=== PATIENT | female | born 2000 | race Caucasian/White ===

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

== ENCOUNTER 2022-04-13 11:05 | Inpatient (IN) | payer OTHER ==
[2022-04-13 12:50] LABS: BASO % 0.2 % (0-2.0); EOS % 0.6 % (0-4.5); HEMATOCRIT 34.7 % (32.4-45.2); HEMOGLOBIN 10.8 GM/dL (10.7-15.3); LYMPH % 16.4 % (8-40); MCH 23.1 pg (25.7-33.7); MEAN CELL VOLUME 74.5 fl (80-96); MEAN PLT VOLUME 8.1 fl (7.5-11.1); MONO % 4.1 % (3.8-10.2); NEUT % 78.7 % (42.8-82.8); PLATELET COUNT 361 10^3/uL (134-434); RBC 4.66 M/mm3 (3.60-5.2); RDW 16.4 % (11.6-15.6); WHITE BLOOD COUNT 8.8 K/mm3 (4.0-10.0)
[2022-04-13 13:11] LABS: ALBUMIN 2.6 g/dl (3.4-5.0); CALCIUM 9.5 mg/dL (8.5-10.1)
[2022-04-13 13:12] LABS: BLOOD UREA NITROGEN 8.4 mg/dL (7-18)
[2022-04-13 13:13] LABS: CREATININE 0.6 mg/dL (0.55-1.3)
[2022-04-13 13:15] LABS: CREATININE 0.6 mg/dL (0.55-1.3); TOT PROT 6.9 g/dl (6.4-8.2)
[2022-04-13 13:17] LABS: BILIRUBIN,TOTAL 0.2 mg/dL (0.2-1)
[2022-04-13 14:00] LABS: CREATININE 0.6 mg/dL (0.55-1.3)
[2022-04-13] MEDS ORDERED: PROMETHAZINE HCL 25 MG/1 ML VIAL IVPUSH ONE (15:44)
[2022-04-13] MEDS ORDERED: BUTORPHANOL TARTRATE 2 MG/ML VIAL IVPB ONE (15:44)
[2022-04-13] MEDS ORDERED: DINOPROSTONE 10 MG VAGINAL SUPPOSITORY VG ONE (15:51)
[2022-04-13 16:52] LABS: INR 1.03 (0.83-1.09); PROTHROMBIN TIME (PATIENT) 11.9 SEC (9.7-13.0)
[2022-04-13 16:55] LABS: ACTIVATED PTT 32.5 SECONDS (25.2-36.5)
[2022-04-13 17:19] VITALS: BMI 42.7
[2022-04-13 19:22] LABS: HIV INTERPRETATION NEGATIVE (NEGATIVE)
[2022-04-14] MEDS ORDERED: SODIUM PHOSPHATE/NA BIPHOS 133 ML ENEMA RC ONE (04:00)
[2022-04-14] MEDS ORDERED: AMPICILLIN - 2 GM in SODIUM CHLORIDE 100 ML IVPB ONE (06:00)
[2022-04-14] MEDS ORDERED: AMPICILLIN SODIUM 2 GM VIAL ONE (06:08)
[2022-04-14] MEDS: DEXTROSE 5%-LACTATED RINGERS 1,000 ML IV SCH ×2 (06:45→16:00)
[2022-04-14] MEDS ORDERED: OXYTOCIN 30 UNITS in 0.9% NS 30 UNIT/500 ML INFUS.BAG IVPB SCH (08:00)
[2022-04-14] MEDS ORDERED: AMPICILLIN SODIUM 1 GM VIAL ONE ×3 (08:49→18:10)
[2022-04-14] MEDS ORDERED: OXYTOCIN 30 UNITS in 0.9% NS 30 UNIT/500 ML INFUS.BAG IVPB ONE (08:49)
[2022-04-14] MEDS: AMPICILLIN - 1 GM in SODIUM CHLORIDE 100 ML IVPB SCH ×3 (10:45→18:15)
[2022-04-14] MEDS ORDERED: BUTORPHANOL TARTRATE 2 MG/ML VIAL ONE (12:57)
[2022-04-14] MEDS ORDERED: PROMETHAZINE HCL 25 MG/1 ML VIAL ONE ×2 (12:57→16:40)
[2022-04-14] MEDS ORDERED: ACETAMINOPHEN 325 MG TABLET (FP) PO ONE (15:24)
[2022-04-14] MEDS ORDERED: PROMETHAZINE HCL 25 MG/1 ML VIAL IVPUSH ONE (16:39)
[2022-04-14] MEDS ORDERED: BUTORPHANOL TARTRATE 1 MG/ML VIAL IVPUSH ONE (16:39)
[2022-04-14] MEDS ORDERED: BUTORPHANOL TARTRATE 1 MG/ML VIAL ONE (16:40)
[2022-04-14] MEDS ORDERED: LIDOCAINE HCL 1% PRESERVATIVE FREE - 30ML VIAL ONE (17:04)
[2022-04-14] MEDS ORDERED: OXYTOCIN 20 UNITS in 0.9% NS 20 UNIT/1,000 ML INFUS.BAG IV ONE (17:04)
[2022-04-14] MEDS ORDERED: BISACODYL 10 MG SUPP.RECT RC PRN (17:31)
[2022-04-14] MEDS ORDERED: ACETAMINOPHEN 325 MG TABLET (FP) PO PRN (17:31)
[2022-04-14] MEDS ORDERED: BENZOCAINE 20% 57 GM BOTTLE TP PRN (17:31)
[2022-04-14] MEDS ORDERED: BENZOCAINE 28 GM HEMORRHOIDAL OINTMENT TP PRN (17:31)
[2022-04-14] MEDS ORDERED: WITCH HAZEL 50% (TUCKS) 40 PAD/JAR PAD TP PRN (17:31)
[2022-04-14] MEDS ORDERED: oxyCODONE HCL 5 MG TABLET PO PRN (17:31)
[2022-04-14] MEDS ORDERED: IBUPROFEN 600 MG TABLET (FP) PO PRN (17:31)
[2022-04-14] MEDS ORDERED: METHYLERGONOVINE MALEATE 0.2 MG/1 ML AMP IM PRN (17:31)
[2022-04-14] MEDS ORDERED: OXYTOCIN 20 UNITS in 0.9% NS 20 UNIT/1,000 ML INFUS.BAG IV SCH (17:45)
[2022-04-14 18:14] LABS: CORD BASE EXCESS -4.3 mmol/L (0-2); CORD HCO3 21.9 mmHg (20-29); CORD PCO2 44.1 mmHg (30-78); CORD pH 7.314 (7.14-7.44)
[2022-04-14 18:21] LABS: CORD BASE EXCESS -3.6 mmol/L (0-2); CORD HCO3 21.6 mmHg (20-29); CORD PCO2 39.5 mmHg (30-78); CORD pH 7.355 (7.14-7.44)
[2022-04-14 19:52] VITALS: RESP 18
[2022-04-15 06:08] LABS: EPI CELLS 13 /uL (0-25.1); HYALINE CASTS 0 /uL (0-3.1); PH,URINE 6.5 (5.0-8.0); URINE APPEARANCE CLEAR; URINE BACTERIA 5 /uL (0-1359); URINE BILIRUBIN NEGATIVE (NEGATIVE); URINE COLOR YELLOW; URINE GLUCOSE (UA) NEGATIVE (NEGATIVE); URINE KETONE TRACE (NEGATIVE); URINE LEUK ESTERASE TRACE (NEGATIVE); URINE NITRITE NEGATIVE (NEGATIVE); URINE PROTEIN 2+ (NEGATIVE); URINE RBC 1246 /uL (0-23.9); URINE WBC 13 /uL (0-25.8)
[2022-04-15 09:19] LABS: BASO % 0.3 % (0-2.0); EOS % 0.5 % (0-4.5); HEMATOCRIT 27.6 % (32.4-45.2); HEMOGLOBIN 8.8 GM/dL (10.7-15.3); LYMPH % 12.4 % (8-40); MCH 23.9 pg (25.7-33.7); MCHC 31.9 g/dl (32.0-36.0); MEAN CELL VOLUME 74.9 fl (80-96); MEAN PLT VOLUME 7.9 fl (7.5-11.1); MONO % 4.5 % (3.8-10.2); NEUT % 82.3 % (42.8-82.8); PLATELET COUNT 272 10^3/uL (134-434); RBC 3.69 M/mm3 (3.60-5.2); RDW 16.1 % (11.6-15.6); WHITE BLOOD COUNT 12.4 K/mm3 (4.0-10.0)
[2022-04-15] MEDS: FERROUS SO4 325 MG TABLET (FP) PO SCH ×2 (09:49→18:20)
[2022-04-15] MEDS: PRENATAL VITAMINS W/ FOLIC ACID TABLET (FP) PO SCH (09:49)
[2022-04-15] MEDS ORDERED: FLU VACC QS2022-23(6MOS UP)/PF 60 MCG/0.5 ML SYRINGE IM ONE (10:00)
[2022-04-15] MEDS ORDERED: DIPHTH,PERTUSS(ACELL),TET 0.5 ML DISP.SYRIN IM ONE (10:00)
[2022-04-15 11:36] LABS: EPI CELLS >36 /uL (0-25.1); HYALINE CASTS 1 /uL (0-3.1); PH,URINE 6.5 (5.0-8.0); URINE APPEARANCE CLEAR; URINE BACTERIA 3 /uL (0-1359); URINE BILIRUBIN NEGATIVE (NEGATIVE); URINE COLOR YELLOW; URINE GLUCOSE (UA) NEGATIVE (NEGATIVE); URINE KETONE NEGATIVE (NEGATIVE); URINE LEUK ESTERASE 1+ (NEGATIVE); URINE NITRITE NEGATIVE (NEGATIVE); URINE PROTEIN TRACE (NEGATIVE); URINE RBC 1955 /uL (0-23.9); URINE WBC 79 /uL (0-25.8)
[2022-04-15] MEDS ORDERED: SENNOSIDES/DOCUSATE COMBO (SENNA PLUS) TABLET (UD) PO PRN (22:00)
[2022-04-15 22:06] VITALS: TEMP 98.5
[2022-04-16] MEDS: PRENATAL VITAMINS W/ FOLIC ACID TABLET (FP) PO SCH (09:13)
[2022-04-16] MEDS: FERROUS SO4 325 MG TABLET (FP) PO SCH (09:13)
[2022-04-16 11:13] VITALS: BP 146/86; PULSE 88
== END 2022-04-16 12:13 | disposition home or self-care (01) | DRG 560 ==
LOC: JDEL 11:05 → JLDR 15:00 → J3W 04-14 20:01
PROVIDERS: ADMIT Obstetrics & Gynecology; ATTEND Obstetrics & Gynecology
PROC: 10E0XZZ Delivery of Products of Conception, External Approach (ICD-10-PCS; principal; 2022-04-13)
PROC: 3E0P7VZ Introduction of Hormone into Female Reproductive, Via Natural or Artificial Opening (ICD-10-PCS; 2022-04-13)
DX: O14.04 Mild to moderate pre-eclampsia, complicating childbirth (principal); O12.13 Gestational proteinuria, third trimester; O99.214 Obesity complicating childbirth; E66.01 Morbid (severe) obesity due to excess calories; O99.824 Streptococcus B carrier state complicating childbirth; Z3A.39 39 weeks gestation of pregnancy; Z37.0 Single live birth; Z86.16 Personal history of COVID-19
CPT/HCPCS: 36415; 36600; 59025; 59409; 71046-TC-FY; 80053; 81003; 82565; 82570; 82575; 82803; 84156; 85025; 85610; 85730; 86780; 86850; 86900; 86901; 87086; 87389; 90715; C9803-CS; G0008; Q2036; U0003; U0005

== ENCOUNTER 2023-10-29 07:15 | Inpatient (IN) | payer OTHER ==
[2023-10-29] MEDS: SODIUM CHLORIDE 0.9% 500 ML INFUS.BAG IV ONE (09:10)
[2023-10-29 09:26] LABS: BASO % 0.2 % (0-2.0); EOS % 0.5 % (0-4.5); HEMATOCRIT 37.1 % (32.4-45.2); HEMOGLOBIN 12.4 GM/dL (10.7-15.3); LYMPH % 12.6 % (8-40); MCH 26.5 pg (25.7-33.7); MCHC 33.4 g/dl (32.0-36.0); MEAN CELL VOLUME 79.3 fl (80-96); MEAN PLT VOLUME 7.5 fl (7.5-11.1); MONO % 4.4 % (3.8-10.2); NEUT % 82.3 % (42.8-82.8); PLATELET COUNT 320 10^3/uL (134-434); RBC 4.67 M/mm3 (3.60-5.2); RDW 15.7 % (11.6-15.6); WHITE BLOOD COUNT 8.8 K/mm3 (4.0-10.0)
[2023-10-29 09:29] LABS: EPI CELLS 5 /uL (0-25.1); HCG,QUALITATIVE URINE Negative; HYALINE CASTS 0 /uL (0-3.1); URINE APPEARANCE CLEAR; URINE BACTERIA 106 /uL (0-1359); URINE BILIRUBIN 1+ (NEGATIVE); URINE COLOR DK YELLOW; URINE GLUCOSE (UA) NEGATIVE (NEGATIVE); URINE KETONE NEGATIVE (NEGATIVE); URINE LEUK ESTERASE NEGATIVE (NEGATIVE); URINE NITRITE NEGATIVE (NEGATIVE); URINE PROTEIN 1+ (NEGATIVE); URINE RBC 46 /uL (0-23.9); URINE WBC 8 /uL (0-25.8)
[2023-10-29 09:48] LABS: POTASSIUM 4.3 mmol/L (3.5-5.1)
[2023-10-29 09:49] LABS: CALCIUM 9.6 mg/dL (8.5-10.1)
[2023-10-29 09:50] LABS: ALBUMIN 3.7 g/dl (3.4-5.0)
[2023-10-29 09:56] LABS: CREATININE 0.8 mg/dL (0.55-1.3)
[2023-10-29 09:57] LABS: BILIRUBIN,TOTAL 1.1 mg/dL (0.2-1); TOT PROT 7.7 g/dl (6.4-8.2)
[2023-10-29 09:58] LABS: BLOOD UREA NITROGEN 17.2 mg/dL (7-18)
[2023-10-29] MEDS ORDERED: ONDANSETRON 4 MG/2 ML VIAL IVPUSH PRN (10:53)
[2023-10-29] MEDS ORDERED: LACTATED RINGERS SOLUTION 1,000 ML/1,000 ML INFUS.BAG IV SCH (11:00)
[2023-10-29] MEDS: LACTATED RINGERS SOLUTION 1,000 ML/1,000 ML INFUS.BAG IV SCH (11:50)
[2023-10-29] MEDS ORDERED: PIPERACILLIN/TAZOB 3.375 GM 3.375 GM/50 ML BAG IVPB ONE (13:56)
[2023-10-29] MEDS: PIPERACILLIN/TAZOB 3.375 GM 3.375 GM in DEXTROSE 5%-WATER - 50 ML IVPB SCH (14:01)
[2023-10-29 15:29] VITALS: BMI 36.8
[2023-10-30 08:01] LABS: BASO % 0.4 % (0-2.0); EOS % 1.5 % (0-4.5); HEMATOCRIT 33.3 % (32.4-45.2); HEMOGLOBIN 10.6 GM/dL (10.7-15.3); LYMPH % 26.2 % (8-40); MCH 25.6 pg (25.7-33.7); MEAN CELL VOLUME 80.2 fl (80-96); MEAN PLT VOLUME 7.7 fl (7.5-11.1); MONO % 4.8 % (3.8-10.2); NEUT % 67.1 % (42.8-82.8); PLATELET COUNT 286 10^3/uL (134-434); RBC 4.15 M/mm3 (3.60-5.2); RDW 15.5 % (11.6-15.6); WHITE BLOOD COUNT 6.8 K/mm3 (4.0-10.0)
[2023-10-30 08:18] LABS: POTASSIUM 3.8 mmol/L (3.5-5.1)
[2023-10-30 08:22] LABS: INR 1.21 (0.83-1.09)
[2023-10-30 08:24] LABS: CALCIUM 8.8 mg/dL (8.5-10.1)
[2023-10-30 08:25] LABS: ALBUMIN 3.1 g/dl (3.4-5.0); BLOOD UREA NITROGEN 7.4 mg/dL (7-18); CREATININE 0.7 mg/dL (0.55-1.3)
[2023-10-30 08:27] LABS: BILIRUBIN,TOTAL 0.7 mg/dL (0.2-1); TOT PROT 6.5 g/dl (6.4-8.2)
[2023-10-30] MEDS: PIPERACILLIN/TAZOB 3.375 GM 3.375 GM in DEXTROSE 5%-WATER - 50 ML IVPB SCH ×2 (14:22→18:25)
[2023-10-30 22:06] VITALS: RESP 18
[2023-10-31 06:06] VITALS: BP 118/76; PULSE 64; TEMP 98.6
[2023-10-31 07:51] LABS: BASO % 0.3 % (0-2.0); EOS % 1.8 % (0-4.5); HEMATOCRIT 34.6 % (32.4-45.2); HEMOGLOBIN 11.1 GM/dL (10.7-15.3); LYMPH % 27.4 % (8-40); MCHC 32.1 g/dl (32.0-36.0); MEAN PLT VOLUME 7.7 fl (7.5-11.1); NEUT % 65.5 % (42.8-82.8); PLATELET COUNT 288 10^3/uL (134-434); RBC 4.28 M/mm3 (3.60-5.2); RDW 15.3 % (11.6-15.6); WHITE BLOOD COUNT 7.7 K/mm3 (4.0-10.0)
[2023-10-31 07:56] LABS: POTASSIUM 4.3 mmol/L (3.5-5.1)
[2023-10-31 07:59] LABS: CALCIUM 8.8 mg/dL (8.5-10.1)
[2023-10-31 08:00] LABS: ALBUMIN 3.3 g/dl (3.4-5.0); BLOOD UREA NITROGEN 8.7 mg/dL (7-18)
[2023-10-31 08:03] LABS: CREATININE 0.7 mg/dL (0.55-1.3)
[2023-10-31 08:04] LABS: BILIRUBIN,TOTAL 0.5 mg/dL (0.2-1); TOT PROT 6.9 g/dl (6.4-8.2)
[2023-10-31] MEDS: AMOX TR/POT CLAV 875MG/125MG TABLETS (FP) PO ONE (09:48)
== END 2023-10-31 10:36 | disposition home or self-care (01) | DRG 282 ==
LOC: JER 07:15 → JERBED 11:04 → J8W 15:07
PROVIDERS: ADMIT Internal Medicine; ATTEND Nurse Practitioner Family
DX: K85.10 Biliary acute pancreatitis without necrosis or infection (principal); R74.01 Elevation of levels of liver transaminase levels
CPT/HCPCS: 36415; 74181-TC; 76705-TC; 80053; 81003; 83690; 84703; 85025; 85610; 99285-25

== ENCOUNTER 2024-07-21 04:19 | Day surgery (SDC) | payer OTHER ==
[2024-07-19 14:03] VITALS: BMI 40.7
[2024-07-21] MEDS ORDERED: HEPARIN NA (PORCINE) 5,000 UNITS/ML 1ML VIAL ONE (12:54)
[2024-07-21] MEDS ORDERED: BUPIVACAINE HCL/PF 0.25% (2.5MG/ML) 10 ML VIAL ONE ×2 (12:54→13:59)
[2024-07-21] MEDS ORDERED: ONDANSETRON 4 MG/2 ML VIAL IVPUSH PRN (13:19)
[2024-07-21] MEDS ORDERED: oxyCODONE HCL 5 MG TABLET PO PRN (13:19)
[2024-07-21] MEDS ORDERED: PROPOFOL 20 ML ONE ×2 (13:26→14:31)
[2024-07-21] MEDS ORDERED: ROCURONIUM BROMIDE 50 MG/5 ML SYRINGE ONE (13:26)
[2024-07-21] MEDS ORDERED: MIDAZOLAM HCL 2 MG/2 ML SINGLE DOSE VIAL ONE (13:26)
[2024-07-21] MEDS ORDERED: LACTATED RINGERS SOLUTION 1,000 ML IV SCH (13:30)
[2024-07-21] MEDS ORDERED: CEFOXITIN SODIUM/DEXTROSE,ISO 2 GM/50 ML BAG ONE (13:46)
[2024-07-21] MEDS: cefOXitin SODIUM 2 GM VIAL (RESTRICTED TO ID) IVPB ONE ×2 (13:50)
[2024-07-21] MEDS: BUPIVACAINE HCL/PF 0.25% (2.5MG/ML) 10 ML VIAL IJ ONE ×2 (13:55)
[2024-07-21] MEDS ORDERED: SUGAMMADEX SODIUM 200 MG/2 ML VIAL ONE (14:28)
[2024-07-21 19:09] VITALS: BP 122/62; PULSE 76; RESP 18; TEMP 98
== END 2024-07-21 19:00 | disposition home or self-care (01) ==
LOC: JASU-SURG 04:19
PROVIDERS: ATTEND Surgery
PROC: 0FT44ZZ Resection of Gallbladder, Percutaneous Endoscopic Approach (ICD-10-PCS; principal; 2024-07-21 14:30)
DX: K80.20 Calculus of gallbladder without cholecystitis without obstruction (principal)
CPT/HCPCS: 88304-TC; 94760; J1644